=== PATIENT | male | born 2000 | race Caucasian/White ===

== ENCOUNTER 2021-06-12 22:19 | Emergency (ER) | payer MEDICAID, OTHER ==
[~2021-06-12] VITALS: Ht 180.3 cm; Wt 95.0 kg
[2021-06-13] MEDS ORDERED: NAPR-681 PO (00:52)
[2021-06-13] MEDS ORDERED: IBUPROFEN 600MG TABLET PO SCH (00:52)
[2021-06-13 00:56] VITALS: BP 121/65
== END 2021-06-13 01:19 | disposition home or self-care (01) ==
LOC: ER 22:19
DX: R51.9 Headache, unspecified (principal); R42 Dizziness and giddiness; R53.83 Other fatigue; V49.49XA Driver injured in collision with other motor vehicles in traffic accident, initial encounter; Y93.89 Activity, other specified; Y92.89 Other specified places as the place of occurrence of the external cause; Y99.8 Other external cause status
CPT/HCPCS: 99282